=== PATIENT | female | born 1965 | race Two or more races ===

== ENCOUNTER 2024-01-10 19:58 | Emergency (ER) | payer OTHER ==
[~2024-01-10] VITALS: Ht 160 cm; Wt 86.2 kg
[~2024-01-10 19:58] MED LIST: ULTRACET PO
[2024-01-10] MEDS ORDERED: ATORVASTATIN CA10 MG (20:20)
[2024-01-10] MEDS ORDERED: ADULT ASPIRIN81 MG (20:20)
[2024-01-10] MEDS ORDERED: PROAIR RESPICL90 MCG (20:20)
[2024-01-10] MEDS ORDERED: LUMIFY2.5 ML (20:21)
[2024-01-10] MEDS ORDERED: FOLIC ACID0.8 M1 (20:21)
[2024-01-10] MEDS ORDERED: GLIPIZIDE XL2.5 MG (20:21)
[2024-01-10] MEDS ORDERED: HYOSCYAMINE0.125 M2 (20:21)
[2024-01-10] MEDS ORDERED: GRALISE600 MG (20:21)
[2024-01-10] MEDS ORDERED: CLARINEX-D 121 EACH (20:21)
[2024-01-10] MEDS ORDERED: ALLERGY RELIE15.8 ML (20:21)
[2024-01-10] MEDS ORDERED: METROTEXATE (20:22)
[2024-01-10] MEDS ORDERED: COZAAR25 MG (20:22)
[2024-01-10] MEDS ORDERED: MUCINEX600 MG (20:22)
[2024-01-10] MEDS ORDERED: IPRATROPIU0.2 MG/1 M (20:22)
[2024-01-10] MEDS ORDERED: LANTUS SOL100 UNIT/1 (20:22)
[2024-01-10] MEDS ORDERED: MILLIPRED5 MG (20:22)
[2024-01-10] MEDS ORDERED: LEVOTHYROXINE25 MCG (20:23)
[2024-01-10] MEDS ORDERED: CARAFATE1 GM (20:23)
[2024-01-10] MEDS ORDERED: TRIJARDY XR 101 EACH (20:23)
[2024-01-10] MEDS ORDERED: PROTONIX20 MG (20:23)
[2024-01-10] MEDS ORDERED: CAROSPIR25 MG/5 ML (20:23)
[2024-01-10] MEDS ORDERED: RITUXAN10 MG/1 ML (20:23)
[2024-01-10] MEDS ORDERED: BUDESONIDE 0.5 MG/2 ML AMPUL.NEB IH STA (22:10)
[2024-01-10] MEDS ORDERED: LEVALBUTEROL HCL 1.25 MG/3 ML SOLUTION IH STA (22:10)
[2024-01-10 23:17] LABS: HEMOGLOBIN 11.8 g/dL (12.0-15.00); MEAN CELL VOLUME 89.3 fL (80.00-100.00); MEAN CORPUSCULAR HEMOGLOBIN 30.2 pg (27.00-32.0); MEAN CORPUSCULAR HGB CONC 33.8 g/dl (32.0-36.0); PLATELET COUNT 426 K/uL (150-450); RED BLOOD COUNT 3.92 M/uL (4.00-6.00)
[2024-01-10] MEDS ORDERED: BUDESONIDE0.5 MG/2 M IH (23:38)
[2024-01-10] MEDS ORDERED: ALBUTEROL2.5 MG/3 M IH (23:38)
[2024-01-10] MEDS ORDERED: BUDESONIDE 0.5 MG/2 ML AMPUL.NEB IH ONE (23:40)
[2024-01-10] MEDS ORDERED: LEVALBUTEROL HCL 1.25 MG/3 ML SOLUTION IH ONE (23:40)
[2024-01-10 23:44] LABS: CALCIUM 9.4 mg/dL (8.5-10.1); GFR 48.3; POTASSIUM 3.08 mEq/L (3.5-5.1)
[2024-01-10 23:49] LABS: CREATININE SERUM 1.15 mg/dL (0.55-1.02)
== END 2024-01-11 00:23 | disposition home or self-care (01) ==
LOC: ER 19:58
PROVIDERS: Emergency Medicine
DX: U07.1 COVID-19 (principal); J45.909 Unspecified asthma, uncomplicated; Z91.041 Radiographic dye allergy status; Z91.040 Latex allergy status; Z88.8 Allergy status to other drugs, medicaments and biological substances